=== PATIENT | female | born 1995 | race Caucasian/White ===

== ENCOUNTER 2019-05-05 08:39 | Inpatient (IN) ==
--- OUTSIDE RECORDS SUMMARY | 2019-05-05 08:46 | External Medical Summary | Continuity of Care Document ---
:1995 Author Name Rich Minaya Address Unavailable Unavailable , Care Team Providers Name Role Phone Crayn MOULTON Unavailable [email or web address] PCP, [email or web address] Unavailable Unavailable Problems Active medical history not documented Allergies and Adverse Reactions Allergy history not documented Medications Medications not documented Procedures Procedures not documented Immunizations Immunizations not documented Plan of Treatment Planned Observations Planned Goals not documented Results No Known Results Results not documented
[2019-05-05] MEDS ORDERED: PENICILLIN G POTASSIUM 6 MU in DEXTROSE 5% 250 ML IV STA (09:25)
[2019-05-05] MEDS ORDERED: OXYTOCIN 30 UNITS/500 ML BAG IV PRN ×2 (09:25→20:39)
--- NOTE | 2019-05-05 09:33 | History & Physical Report ---
Date of Service May 05, 2019 Assessment & Plan (1) Uterine contractions at greater than 20 weeks of gestation: 24 yo at 39.6 wks with ctxs, feeling wet, + Amnisure test VSS Afebrile FHR reassuring GBS + Plan to admit, breakfast, ambulate and start Oxytocin if no cervical change in 2 hours Epidural for pain as desires She agrees All questions were answered (2) SROM (spontaneous rupture of membranes): History of Present Illness Chief Complaint: contractions and leaking Primary Care Provider: Desire Rosas MD Patient is a 24 yo at 39.6 wks who started to feel ctxs since last night they got closer and more painful since 5 am She has been feeling wet, no gush or trickling ut her underwear gets wet No VB +FM Her has been uncomplicated GBS+ Denies medical problems Denies PCN allergy Home Medications Home Medications Medication Instructions Recorded Confirmed Type vit-iron fum-folic ac 1 tab PO DAILY 05/05/19 05/05/19 History [ Vitamin] Patient History Social History Preferred Language: Frisian Communication Ability: Effective Pals Specialist Required: No Beliefs That Will Affect Care: None marital status: Current Living Situation: Spouse Other Information That Helps Us Care for You: No Feels Safe at Home: Yes Smoking Status: Never smoker Hx Alcohol Use: No 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
[2019-05-05] MEDS: LACTATED RINGER'S 1,000 ML IV PRN ×2 (09:38→19:08)
[2019-05-05 09:49] LABS: Hematocrit (blood only) 37.9 % (37-47); Hemoglobin 13.4 g/dL (12.0-16.0); Mean Corpuscular Hemoglobin 30.1 pg (25-34); Mean Corpuscular Volume 85.2 fL (80-100); Mean Platelet Volume 10.4 fL (7.4-10.4); Platelet Count 276 K/uL (130-400); RDW Coefficient of Variation 13.3 % (11.5-14.5); Red Blood Count 4.45 M/uL (4.2-5.4); White Blood Count 13.33 K/uL (4.8-10.8)
[2019-05-05 10:03] LABS: Mean Corpuscular Hgb Conc 35.4 g/dL (32-36)
[2019-05-05] MEDS: PENICILLIN G POTASSIUM 3 MU in DEXTROSE 5% 100 ML IV PRN ×3 (13:33→21:28)
[2019-05-05] MEDS ORDERED: DINOPROSTONE 10 MG INSERT PV ONE (14:46)
--- NOTE | 2019-05-05 14:51 | Obstetrical Progress Note ---
Date of Service May 05, 2019 Subjective Patient is reevaluated She feels more painful Ctxs q 4-7 min but more painful, 8-9/10 She is able walk She has bhargav very wet while walking, but has not had underwear nor pad, she has not leaked on the floor either. She received 2 doses of PCN VSS Afebrile FHR categ I [place] unfortunately has not been monitoring ctxs very well, seems mild increase from baseline every 5-7 min VE; 1-2 cm/ 80%/ central, -2, head Discussed options like augmentation with Pitocin vs PO Cytotec vs PV Cervidil Per nursing team hard to run pitocin due to not able monitor ctxs, not a good candidate for IUPC either After long discussion she decided to be able walk and have Cervidil Continue to monitor closely Results & Data Vital Signs (Past 12 Hours) Vital Signs Temp Pulse Resp BP 05/05/19 13:37 37.0 C 64 20 130/73 05/05/19 13:35 74 122/89 05/05/19 12:53 83 130/70 05/05/19 12:49 18 05/05/19 12:09 37.0 C 96 H 20 158/83 H 05/05/19 12:08 97 H 161/121 H 05/05/19 10:13 79 145/78 H 05/05/19 10:12 37.0 C 93 H 20 123/98 05/05/19 08:46 36.8 C 83 20 133/68
[2019-05-05] MEDS: BUTORPHANOL TARTRATE 1 MG/ML VIAL IV PRN ×2 (15:59→17:58)
[2019-05-05] MEDS ORDERED: ePHEDrine sulfate 50 MG/ML AMP ONE (19:15)
[2019-05-05] MEDS ORDERED: BUPIVACAINE 0.25% 30 ML VIAL ONE ×2 (19:15→22:04)
[2019-05-05] MEDS ORDERED: fentaNYL citrate 100 MCG/2 ML VIAL ONE (19:15)
[2019-05-05] MEDS ORDERED: fentaNYL 2MCG/ML ROPIV 1.25MG/ML 100 ML BAG EPI ONE (19:16)
[2019-05-05] MEDS ORDERED: NALOXONE HCL 1 MG in SODIUM CHLORIDE 0.9% 1000ML 1,000 ML IV PRN (19:23)
[2019-05-05] MEDS ORDERED: ePHEDrine sulfate 50 MG/ML AMP IV PRN (19:23)
[2019-05-05] MEDS ORDERED: fentaNYL 2MCG/ML ROPIV 1.25MG/ML 100 ML BAG EPI PRN (19:23)
[2019-05-05] MEDS ORDERED: ONDANSETRON INJ 2 MG/ML 2 ML VIAL IV PRN (19:23)
[2019-05-05] MEDS ORDERED: NALBUPHINE HCL INJ 10 MG/ML AMP IV PRN (19:23)
[2019-05-05] MEDS ORDERED: NALOXONE HCL 0.4 MG/1 ML VIAL/CARP IV PRN (19:23)
[2019-05-05] MEDS ORDERED: DiphenhydrAMINE HCL 50 MG/ML VIAL IV PRN (19:23)
--- NOTE | 2019-05-05 19:28 | Anesthesiology Consultation ---
Date of Service May 05, 2019 Assessment & Plan Chart Review Chart Review: Patient NOT seen in Pre Admission Testing and Acceptable Risk for Labor Epidural Consults Requested none ASA ASA2 Proposed Anesthesia Anesthesia Type: Labor Epidural and CSE Risk / Benefits Reviewed With: PT / POA / Parent / Guardian, Accepts Plan and Informed Consent Obtained History Height/Weight Height: 6 ft 3 in Weight: 137.438 kg Allergies Allergy/AdvReac Type Severity Reaction Status Date / Time No Known Allergies Allergy Unverified 05/05/19 09:55 Medications Home Medications Medication Instructions Recorded Confirmed Last Taken vit-iron fum-folic ac 1 tab PO DAILY 05/05/19 05/05/19 05/04/19 07:15 [ Vitamin] Active Medications Generic Name Dose Route Start Last Admin Trade Name Freq PRN Reason Stop Dose Admin Butorphanol Tartrate 1 mg 05/05/19 14:46 05/05/19 17:58 Stadol IV 06/04/19 14:45 1 mg Q2HWA PRN Administration Pain Penicillin G Potassium 3 mu/ 106 mls @ 100 mls/hr 05/05/19 09:25 05/05/19 17:31 Dextrose IV 05/15/19 09:24 100 mls/hr Q4H PRN Administration Give until delivery Lactated Ringer's 1,000 mls @ 150 mls/hr 05/05/19 09:25 05/05/19 19:18 Lr IV 05/07/19 09:24 999 mls/hr .[id number] PRN Infusion L&D Protocol Protocol NPO Date Last Intake of Fluids: 05/05/19 Time Last Intake of Fluids: 19:00 Date Last Intake of Solids: 05/05/19 Time Last Intake of Solids: 09:00 Exercise / Class Metabolic Activity II 4-5 Yardwork/Stairs/Walk up hill Past Anesthesia History No Hx of Anesthesia Complications and No Family Hx of Anesthesia Complications History of PONV No Hx of PONV and No Hx of Motion Sickness Social History Smoking Status: Never smoker Hx Alcohol Use: No Hx Substance Use: No Review of Systems no chest pain or sob Physical Exam Vital Signs Last Vital Signs Temp 36.8 C 05/05/19 19:04 Pulse 77 05/05/19 19:25 Resp 18 05/05/19 19:04 BP 146/86 H 05/05/19 19:04 Pulse Ox 97 05/05/19 19:25 ENMT Mouth: no TMJ abnormality Thyromental Distance: > or= 3.5 Finger Breadths Mallampati Class: II Neck normal visual inspection Respiratory normal respiratory effort Auscultation: lungs clear to auscultation bilaterally Cardiovascular Rate/Rhythm: regular rate and regular rhythm Musculoskeletal Spine: normal cervical ROM Neurologic moves all extremities Psychiatric Orientation: alert and oriented x 3 Testing Laboratory Results 05/05/19 09:34 Blood Type O Positive 05/05/19 09:34 Antibody Screen NEGATIVE 05/05/19 09:34
--- NOTE | 2019-05-05 20:38 | Obstetrical Progress Note ---
Date of Service May 05, 2019 Subjective Patient is reevaluated She feels much better after epidural Stadol IVX2 did not help for her pain FHR categ I Nursing team unable to monitor her ctxs by toco nor palpate VE: 2/ 90%/ -2, Central, bulging tight bag, cervidil is removed and SROM'ed, clear fluid IUPC is placed Plan to monitor closely [place] start pitocin Results & Data Vital Signs (Past 12 Hours) Vital Signs Temp Pulse Resp BP Pulse Ox 05/05/19 20:35 81 98 05/05/19 20:30 62 98 05/05/19 20:25 85 98 05/05/19 20:24 93 H 120/62 05/05/19 20:20 98 H 98 05/05/19 20:19 63 16 120/57 L 05/05/19 20:15 70 96 05/05/19 20:14 72 18 115/60 05/05/19 20:10 85 98 05/05/19 20:09 81 18 139/67 05/05/19 20:05 72 98 05/05/19 20:00 79 98 05/05/19 19:55 92 H 97 05/05/19 19:53 82 141/68 H 05/05/19 19:50 82 18 135/61 98 05/05/19 19:47 99 H 156/68 H 05/05/19 19:46 18 05/05/19 19:45 86 99 05/05/19 19:44 75 128/68 05/05/19 19:41 73 18 127/72 05/05/19 19:40 69 97 05/05/19 19:39 92 H 154/111 H 05/05/19 19:35 76 156/89 H 98 05/05/19 19:30 88 100 05/05/19 19:25 77 97 05/05/19 19:20 84 98 05/05/19 19:04 36.8 C 68 18 146/86 H 05/05/19 17:02 36.8 C 81 20 115/58 L 05/05/19 15:26 36.8 C 68 20 133/75 05/05/19 13:37 37.0 C 64 20 130/73 05/05/19 13:35 74 122/89 05/05/19 12:53 83 130/70 05/05/19 12:49 18 05/05/19 12:09 37.0 C 96 H 20 158/83 H 05/05/19 12:08 97 H 161/121 H 05/05/19 10:13 79 145/78 H 05/05/19 10:12 37.0 C 93 H 20 123/98 05/05/19 08:46 36.8 C 83 20 133/68
[2019-05-05] MEDS ORDERED: Nursing to Pharmacy Communication ONE (21:26)
--- NOTE | 2019-05-05 22:11 | Obstetrical Progress Note ---
Date of Service May 05, 2019 Subjective Patient started to feel pain again, tearful Epidural button and increased setting are not helping Moving in bed, unable to trace the baby VE; 3/ 90%/ -2, FSE is placed, FHR 150's Continue to monitor Anesthesiology is notified Results & Data Vital Signs (Past 12 Hours) Vital Signs Temp Pulse Resp BP Pulse Ox 05/05/19 22:06 107 H 92 05/05/19 22:05 114 H 97 05/05/19 22:00 99 H 98 05/05/19 21:55 89 98 05/05/19 21:54 88 132/71 05/05/19 21:50 84 97 05/05/19 21:45 84 97 05/05/19 21:40 92 H 97 05/05/19 21:39 87 139/87 05/05/19 21:35 37.1 C 82 20 96 05/05/19 21:30 95 H 97 05/05/19 21:25 76 95 05/05/19 21:20 79 96 05/05/19 21:16 70 94 05/05/19 21:15 76 96 05/05/19 21:10 80 144/93 H 97 05/05/19 21:05 82 96 05/05/19 21:00 81 96 05/05/19 20:55 79 97 05/05/19 20:54 74 129/63 05/05/19 20:50 85 98 05/05/19 20:45 80 96 05/05/19 20:40 81 16 129/66 97 05/05/19 20:37 37.1 C 18 05/05/19 20:35 81 98 05/05/19 20:30 62 98 05/05/19 20:25 85 98 05/05/19 20:24 93 H 120/62 05/05/19 20:20 98 H 98 05/05/19 20:19 63 16 120/57 L 05/05/19 20:15 70 96 05/05/19 20:14 72 18 115/60 05/05/19 20:10 85 98 05/05/19 20:09 81 18 139/67 05/05/19 20:05 72 98 05/05/19 20:00 79 98 05/05/19 19:55 92 H 97 05/05/19 19:53 82 141/68 H 05/05/19 19:50 82 18 135/61 98 05/05/19 19:47 99 H 156/68 H 05/05/19 19:46 18 05/05/19 19:45 86 99 05/05/19 19:44 75 128/68 05/05/19 19:41 73 18 127/72 05/05/19 19:40 69 97 05/05/19 19:39 92 H 154/111 H 05/05/19 19:35 76 156/89 H 98 05/05/19 19:30 88 100 05/05/19 19:25 77 97 05/05/19 19:20 84 98 05/05/19 19:04 36.8 C 68 18 146/86 H 05/05/19 17:02 36.8 C 81 20 115/58 L 05/05/19 15:26 36.8 C 68 20 133/75 05/05/19 13:37 37.0 C 64 20 130/73 05/05/19 13:35 74 122/89 05/05/19 12:53 83 130/70 05/05/19 12:49 18 05/05/19 12:09 37.0 C 96 H 20 158/83 H 05/05/19 12:08 97 H 161/121 H 05/05/19 10:13 79 145/78 H 05/05/19 10:12 37.0 C 93 H 20 123/98
[2019-05-05] MEDS ORDERED: BUPIVACAINE 0.25% 30 ML VIAL INFIL ONE (22:17)
[2019-05-06] MEDS: LACTATED RINGER'S 1,000 ML IV PRN ×2 (00:18→05:01)
[2019-05-06] MEDS: fentaNYL 2MCG/ML ROPIV 1.25MG/ML 100 ML BAG EPI PRN ×3 (00:27→08:32)
[2019-05-06] MEDS: PENICILLIN G POTASSIUM 3 MU in DEXTROSE 5% 100 ML IV PRN ×2 (01:21→05:33)
--- NOTE | 2019-05-06 02:29 | Obstetrical Progress Note ---
Date of Service May 06, 2019 Subjective She has been comfortbale IUPC and fse have been monitoring ctxs and FHR FHR has had multiple variable decels, short lasting with quick recovery, most likely from cord compression Cervix 5 cm Plan to start Amnioinfusion and monitor closely Results & Data Vital Signs (Past 12 Hours) Vital Signs Temp Pulse Resp BP Pulse Ox 05/06/19 02:25 100 H 98 05/06/19 02:23 95 H 116/56 L 05/06/19 02:20 92 H 99 05/06/19 02:15 98 H 98 05/06/19 02:10 102 H 98 05/06/19 02:06 106 H 128/66 05/06/19 02:05 101 H 99 05/06/19 02:00 138 H 99 05/06/19 01:55 89 97 05/06/19 01:50 92 H 96 05/06/19 01:45 83 97 05/06/19 01:44 99 H 135/77 05/06/19 01:40 74 97 05/06/19 01:35 83 96 05/06/19 01:30 76 96 05/06/19 01:27 84 121/57 L 05/06/19 01:25 74 96 05/06/19 01:23 37.2 C 16 05/06/19 01:20 85 127/60 96 05/06/19 01:15 106 H 96 05/06/19 01:13 102 H 94 05/06/19 01:10 84 95 05/06/19 01:05 76 95 05/06/19 01:02 74 94 05/06/19 01:00 82 95 05/06/19 00:57 98 H 113/62 05/06/19 00:55 77 95 05/06/19 00:50 86 96 05/06/19 00:45 76 96 05/06/19 00:42 86 119/62 05/06/19 00:40 77 96 05/06/19 00:35 88 96 05/06/19 00:30 88 97 05/06/19 00:27 95 H 124/64 05/06/19 00:25 96 H 98 05/06/19 00:20 108 H 98 05/06/19 00:17 37.2 C 18 05/06/19 00:15 152 H 99 05/06/19 00:12 102 H 119/59 L 05/06/19 00:10 109 H 97 05/06/19 00:05 95 H 97 05/06/19 00:00 90 96 05/05/19 23:57 86 121/65 05/05/19 23:55 93 H 96 05/05/19 23:50 90 96 05/05/19 23:45 96 H 96 05/05/19 23:42 84 116/56 L 05/05/19 23:40 93 H 96 05/05/19 23:35 80 96 05/05/19 23:30 94 H 96 05/05/19 23:27 93 H 117/56 L 05/05/19 23:25 97 H 97 05/05/19 23:20 105 H 96 05/05/19 23:15 82 95 05/05/19 23:13 94 H 124/74 05/05/19 23:10 90 95 05/05/19 23:05 85 95 05/05/19 23:01 92 H 94 05/05/19 23:00 93 H 95 05/05/19 22:57 98 H 16 119/63 05/05/19 22:55 96 H 97 05/05/19 22:52 86 111/59 L 05/05/19 22:50 87 95 05/05/19 22:48 93 H 123/63 05/05/19 22:45 89 95 05/05/19 22:44 88 125/63 05/05/19 22:40 87 96 05/05/19 22:37 88 16 119/58 L 05/05/19 22:35 85 96 05/05/19 22:32 85 121/56 L 05/05/19 22:30 94 H 96 05/05/19 22:28 84 121/55 L 05/05/19 22:25 94 H 96 05/05/19 22:23 86 141/58 H 05/05/19 22:20 83 96 05/05/19 22:18 101 H 134/69 05/05/19 22:15 81 97 05/05/19 22:12 85 133/63 05/05/19 22:10 90 134/63 97 05/05/19 22:06 107 H 92 05/05/19 22:05 114 H 97 05/05/19 22:00 99 H 98 05/05/19 21:55 89 98 05/05/19 21:54 88 132/71 05/05/19 21:50 84 97 05/05/19 21:45 84 97 05/05/19 21:40 92 H 97 05/05/19 21:39 87 139/87 05/05/19 21:35 37.1 C 82 20 96 05/05/19 21:30 95 H 97 05/05/19 21:25 76 95 05/05/19 21:20 79 96 05/05/19 21:16 70 94 05/05/19 21:15 76 96 05/05/19 21:10 80 144/93 H 97 05/05/19 21:05 82 96 05/05/19 21:00 81 96 05/05/19 20:55 79 97 05/05/19 20:54 74 129/63 05/05/19 20:50 85 98 05/05/19 20:45 80 96 05/05/19 20:40 81 16 129/66 97 05/05/19 20:37 37.1 C 18 05/05/19 20:35 81 98 05/05/19 20:30 62 98 05/05/19 20:25 85 98 05/05/19 20:24 93 H 120/62 05/05/19 20:20 98 H 98 05/05/19 20:19 63 16 120/57 L 05/05/19 20:15 70 96 05/05/19 20:14 72 18 115/60 05/05/19 20:10 85 98 05/05/19 20:09 81 18 139/67 05/05/19 20:05 72 98 05/05/19 20:00 79 98 05/05/19 19:55 92 H 97 05/05/19 19:53 82 141/68 H 05/05/19 19:50 82 18 135/61 98 05/05/19 19:47 99 H 156/68 H 05/05/19 19:46 18 05/05/19 19:45 86 99 05/05/19 19:44 75 128/68 05/05/19 19:41 73 18 127/72 05/05/19 19:40 69 97 05/05/19 19:39 92 H 154/111 H 05/05/19 19:35 76 156/89 H 98 05/05/19 19:30 88 100 05/05/19 19:25 77 97 05/05/19 19:20 84 98 05/05/19 19:04 36.8 C 68 18 146/86 H 05/05/19 17:02 36.8 C 81 20 115/58 L 05/05/19 15:26 36.8 C 68 20 133/75
[2019-05-06] MEDS ORDERED: fentaNYL citrate 100 MCG/2 ML VIAL ONE ×2 (02:47→08:12)
--- NOTE | 2019-05-06 04:30 | Obstetrical Progress Note ---
Date of Service May 06, 2019 Subjective Patient is reevaluated Comfortable no complaints Pitocin has been off HR had been tachycardic with decreased variability VE: 6-7 cm/ 80%/ 0 station, scalp stimulation increased variability, IUPC was removed VSS Afebrile Plan to monitor closely, IVF bolus and restart pitocin if FHR will stay categ I Results & Data Vital Signs (Past 12 Hours) Vital Signs Temp Pulse Resp BP Pulse Ox 05/06/19 04:25 89 100 05/06/19 04:22 82 110/57 L 05/06/19 04:20 98 H 99 05/06/19 04:15 69 99 05/06/19 04:10 74 99 05/06/19 04:07 78 106/59 L 05/06/19 04:05 74 99 05/06/19 04:02 37.3 C 18 05/06/19 04:00 74 99 05/06/19 03:55 73 100 05/06/19 03:52 68 99/51 L 05/06/19 03:50 68 99 05/06/19 03:45 66 100 05/06/19 03:40 68 100 05/06/19 03:37 64 110/53 L 05/06/19 03:35 65 100 05/06/19 03:30 72 100 05/06/19 03:25 66 100 05/06/19 03:24 68 113/56 L 05/06/19 03:20 71 100 05/06/19 03:15 71 100 05/06/19 03:10 77 100 05/06/19 03:08 65 114/59 L 05/06/19 03:05 78 122/57 L 100 05/06/19 03:02 80 121/59 L 05/06/19 03:00 81 100 05/06/19 02:59 94 H 130/62 05/06/19 02:57 81 16 131/60 05/06/19 02:55 124 H 100 05/06/19 02:53 89 16 117/57 L 05/06/19 02:50 104 H 100 05/06/19 02:45 81 100 05/06/19 02:40 86 100 05/06/19 02:38 37.1 C 85 16 111/57 L 05/06/19 02:35 92 H 100 05/06/19 02:30 100 H 98 05/06/19 02:25 100 H 98 05/06/19 02:23 95 H 116/56 L 05/06/19 02:20 92 H 99 05/06/19 02:15 98 H 98 05/06/19 02:10 102 H 98 05/06/19 02:06 106 H 128/66 05/06/19 02:05 101 H 99 05/06/19 02:00 138 H 99 05/06/19 01:55 89 97 05/06/19 01:50 92 H 96 05/06/19 01:45 83 97 05/06/19 01:44 99 H 135/77 05/06/19 01:40 74 97 05/06/19 01:35 83 96 05/06/19 01:30 76 96 05/06/19 01:27 84 121/57 L 05/06/19 01:25 74 96 05/06/19 01:23 37.2 C 16 05/06/19 01:20 85 127/60 96 05/06/19 01:15 106 H 96 05/06/19 01:13 102 H 94 05/06/19 01:10 84 95 05/06/19 01:05 76 95 05/06/19 01:02 74 94 05/06/19 01:00 82 95 05/06/19 00:57 98 H 113/62 05/06/19 00:55 77 95 05/06/19 00:50 86 96 05/06/19 00:45 76 96 05/06/19 00:42 86 119/62 05/06/19 00:40 77 96 05/06/19 00:35 88 96 05/06/19 00:30 88 97 05/06/19 00:27 95 H 124/64 05/06/19 00:25 96 H 98 05/06/19 00:20 108 H 98 05/06/19 00:17 37.2 C 18 05/06/19 00:15 152 H 99 05/06/19 00:12 102 H 119/59 L 05/06/19 00:10 109 H 97 05/06/19 00:05 95 H 97 05/06/19 00:00 90 96 05/05/19 23:57 86 121/65 05/05/19 23:55 93 H 96 05/05/19 23:50 90 96 05/05/19 23:45 96 H 96 05/05/19 23:42 84 116/56 L 05/05/19 23:40 93 H 96 05/05/19 23:35 80 96 05/05/19 23:30 94 H 96 05/05/19 23:27 93 H 117/56 L 05/05/19 23:25 97 H 97 05/05/19 23:20 105 H 96 05/05/19 23:15 82 95 05/05/19 23:13 94 H 124/74 05/05/19 23:10 90 95 05/05/19 23:05 85 95 05/05/19 23:01 92 H 94 05/05/19 23:00 93 H 95 05/05/19 22:57 98 H 16 119/63 05/05/19 22:55 96 H 97 05/05/19 22:52 86 111/59 L 05/05/19 22:50 87 95 05/05/19 22:48 93 H 123/63 05/05/19 22:45 89 95 05/05/19 22:44 88 125/63 05/05/19 22:40 87 96 05/05/19 22:37 88 16 119/58 L 05/05/19 22:35 85 96 05/05/19 22:32 85 121/56 L 05/05/19 22:30 94 H 96 05/05/19 22:28 84 121/55 L 05/05/19 22:25 94 H 96 05/05/19 22:23 86 141/58 H 05/05/19 22:20 83 96 05/05/19 22:18 101 H 134/69 05/05/19 22:15 81 97 05/05/19 22:12 85 133/63 05/05/19 22:10 90 134/63 97 05/05/19 22:06 107 H 92 05/05/19 22:05 114 H 97 05/05/19 22:00 99 H 98 05/05/19 21:55 89 98 05/05/19 21:54 88 132/71 05/05/19 21:50 84 97 05/05/19 21:45 84 97 05/05/19 21:40 92 H 97 05/05/19 21:39 87 139/87 05/05/19 21:35 37.1 C 82 20 96 05/05/19 21:30 95 H 97 05/05/19 21:25 76 95 05/05/19 21:20 79 96 05/05/19 21:16 70 94 05/05/19 21:15 76 96 05/05/19 21:10 80 144/93 H 97 05/05/19 21:05 82 96 05/05/19 21:00 81 96 05/05/19 20:55 79 97 05/05/19 20:54 74 129/63 05/05/19 20:50 85 98 05/05/19 20:45 80 96 05/05/19 20:40 81 16 129/66 97 05/05/19 20:37 37.1 C 18 05/05/19 20:35 81 98 05/05/19 20:30 62 98 05/05/19 20:25 85 98 05/05/19 20:24 93 H 120/62 05/05/19 20:20 98 H 98 05/05/19 20:19 63 16 120/57 L 05/05/19 20:15 70 96 05/05/19 20:14 72 18 115/60 05/05/19 20:10 85 98 05/05/19 20:09 81 18 139/67 05/05/19 20:05 72 98 05/05/19 20:00 79 98 05/05/19 19:55 92 H 97 05/05/19 19:53 82 141/68 H 05/05/19 19:50 82 18 135/61 98 05/05/19 19:47 99 H 156/68 H 05/05/19 19:46 18 05/05/19 19:45 86 99 05/05/19 19:44 75 128/68 05/05/19 19:41 73 18 127/72 05/05/19 19:40 69 97 05/05/19 19:39 92 H 154/111 H 05/05/19 19:35 76 156/89 H 98 05/05/19 19:30 88 100 05/05/19 19:25 77 97 05/05/19 19:20 84 98 05/05/19 19:04 36.8 C 68 18 146/86 H 05/05/19 17:02 36.8 C 81 20 115/58 L
[2019-05-06] MEDS ORDERED: cefOXitin 2,000 MG/60 ML BAG IV STA (06:25)
--- NOTE | 2019-05-06 06:55 | Obstetrical Progress Note ---
Date of Service May 06, 2019 Subjective Patient is reevaluated Started to feel ctxs FHR had been mildly tachycardic 155-160's baseline with minimal variability and short lasting variable decels Pitocin had not been started due to that VE; 6-7/ 70%/ 0, coned head, OP, confirmed with bed side US scalp stimulation caused acceleration and moderate variability Maternal temp 37.3 and repeat one 37.2 Started on Cefoxitin for prolonged SROM CBC pending FHR had been now normal baseline and variability Will start pitocin to augment ctxs and continue to monitor closely Will sign out to Dr. Abad Results & Data Vital Signs (Past 12 Hours) Vital Signs Temp Pulse Resp BP Pulse Ox 05/06/19 06:46 93 H 93 05/06/19 06:45 98 H 95 05/06/19 06:40 96 H 98 05/06/19 06:36 88 132/71 05/06/19 06:35 86 95 05/06/19 06:30 90 97 05/06/19 06:25 81 97 05/06/19 06:24 92 H 131/74 05/06/19 06:20 37.2 C 117 H 98 05/06/19 06:15 85 99 05/06/19 06:10 82 99 05/06/19 06:07 90 115/57 L 05/06/19 06:05 91 H 99 05/06/19 06:00 87 99 05/06/19 05:55 76 99 05/06/19 05:52 95 H 129/55 L 05/06/19 05:50 76 99 05/06/19 05:45 63 100 05/06/19 05:40 65 100 05/06/19 05:37 37.3 C 81 16 114/59 L 05/06/19 05:35 71 99 05/06/19 05:30 91 H 100 05/06/19 05:25 69 100 05/06/19 05:22 58 L 111/56 L 05/06/19 05:20 67 99 05/06/19 05:15 65 100 05/06/19 05:10 66 100 05/06/19 05:07 61 106/52 L 05/06/19 05:05 63 100 05/06/19 05:00 69 100 05/06/19 04:55 64 100 05/06/19 04:52 62 106/56 L 05/06/19 04:50 63 99 05/06/19 04:45 65 99 05/06/19 04:40 68 99 05/06/19 04:37 72 106/58 L 05/06/19 04:35 67 100 05/06/19 04:30 83 99 05/06/19 04:25 89 100 05/06/19 04:22 82 110/57 L 05/06/19 04:20 98 H 99 05/06/19 04:15 69 99 05/06/19 04:10 74 99 05/06/19 04:07 78 106/59 L 05/06/19 04:05 74 99 05/06/19 04:02 37.3 C 18 05/06/19 04:00 74 99 05/06/19 03:55 73 100 05/06/19 03:52 68 99/51 L 05/06/19 03:50 68 99 05/06/19 03:45 66 100 05/06/19 03:40 68 100 05/06/19 03:37 64 110/53 L 05/06/19 03:35 65 100 05/06/19 03:30 72 100 05/06/19 03:25 66 100 05/06/19 03:24 68 113/56 L 05/06/19 03:20 71 100 05/06/19 03:15 71 100 05/06/19 03:10 77 100 05/06/19 03:08 65 114/59 L 05/06/19 03:05 78 122/57 L 100 05/06/19 03:02 80 121/59 L 05/06/19 03:00 81 100 05/06/19 02:59 94 H 130/62 05/06/19 02:57 81 16 131/60 05/06/19 02:55 124 H 100 05/06/19 02:53 89 16 117/57 L 05/06/19 02:50 104 H 100 05/06/19 02:45 81 100 05/06/19 02:40 86 100 05/06/19 02:38 37.1 C 85 16 111/57 L 05/06/19 02:35 92 H 100 05/06/19 02:30 100 H 98 05/06/19 02:25 100 H 98 05/06/19 02:23 95 H 116/56 L 05/06/19 02:20 92 H 99 05/06/19 02:15 98 H 98 05/06/19 02:10 102 H 98 05/06/19 02:06 106 H 128/66 05/06/19 02:05 101 H 99 05/06/19 02:00 138 H 99 05/06/19 01:55 89 97 05/06/19 01:50 92 H 96 05/06/19 01:45 83 97 05/06/19 01:44 99 H 135/77 05/06/19 01:40 74 97 05/06/19 01:35 83 96 05/06/19 01:30 76 96 05/06/19 01:27 84 121/57 L 05/06/19 01:25 74 96 05/06/19 01:23 37.2 C 16 05/06/19 01:20 85 127/60 96 05/06/19 01:15 106 H 96 05/06/19 01:13 102 H 94 05/06/19 01:10 84 95 05/06/19 01:05 76 95 05/06/19 01:02 74 94 05/06/19 01:00 82 95 05/06/19 00:57 98 H 113/62 05/06/19 00:55 77 95 05/06/19 00:50 86 96 05/06/19 00:45 76 96 05/06/19 00:42 86 119/62 05/06/19 00:40 77 96 05/06/19 00:35 88 96 05/06/19 00:30 88 97 05/06/19 00:27 95 H 124/64 05/06/19 00:25 96 H 98 05/06/19 00:20 108 H 98 05/06/19 00:17 37.2 C 18 05/06/19 00:15 152 H 99 05/06/19 00:12 102 H 119/59 L 05/06/19 00:10 109 H 97 05/06/19 00:05 95 H 97 05/06/19 00:00 90 96 05/05/19 23:57 86 121/65 05/05/19 23:55 93 H 96 05/05/19 23:50 90 96 05/05/19 23:45 96 H 96 05/05/19 23:42 84 116/56 L 05/05/19 23:40 93 H 96 05/05/19 23:35 80 96 05/05/19 23:30 94 H 96 05/05/19 23:27 93 H 117/56 L 05/05/19 23:25 97 H 97 05/05/19 23:20 105 H 96 05/05/19 23:15 82 95 05/05/19 23:13 94 H 124/74 05/05/19 23:10 90 95 05/05/19 23:05 85 95 05/05/19 23:01 92 H 94 05/05/19 23:00 93 H 95 05/05/19 22:57 98 H 16 119/63 05/05/19 22:55 96 H 97 05/05/19 22:52 86 111/59 L 05/05/19 22:50 87 95 05/05/19 22:48 93 H 123/63 05/05/19 22:45 89 95 05/05/19 22:44 88 125/63 05/05/19 22:40 87 96 05/05/19 22:37 88 16 119/58 L 05/05/19 22:35 85 96 05/05/19 22:32 85 121/56 L 05/05/19 22:30 94 H 96 05/05/19 22:28 84 121/55 L 05/05/19 22:25 94 H 96 05/05/19 22:23 86 141/58 H 05/05/19 22:20 83 96 05/05/19 22:18 101 H 134/69 05/05/19 22:15 81 97 05/05/19 22:12 85 133/63 05/05/19 22:10 90 134/63 97 05/05/19 22:06 107 H 92 05/05/19 22:05 114 H 97 05/05/19 22:00 99 H 98 05/05/19 21:55 89 98 05/05/19 21:54 88 132/71 05/05/19 21:50 84 97 05/05/19 21:45 84 97 05/05/19 21:40 92 H 97 05/05/19 21:39 87 139/87 05/05/19 21:35 37.1 C 82 20 96 10/29/19 21:30 95 H 97 05/05/19 21:25 76 95 05/05/19 21:20 79 96 05/05/19 21:16 70 94 05/05/19 21:15 76 96 05/05/19 21:10 80 144/93 H 97 05/05/19 21:05 82 96 05/05/19 21:00 81 96 05/05/19 20:55 79 97 05/05/19 20:54 74 129/63 05/05/19 20:50 85 98 05/05/19 20:45 80 96 05/05/19 20:40 81 16 129/66 97 05/05/19 20:37 37.1 C 18 05/05/19 20:35 81 98 05/05/19 20:30 62 98 05/05/19 20:25 85 98 05/05/19 20:24 93 H 120/62 05/05/19 20:20 98 H 98 05/05/19 20:19 63 16 120/57 L 05/05/19 20:15 70 96 05/05/19 20:14 72 18 115/60 05/05/19 20:10 85 98 05/05/19 20:09 81 18 139/67 05/05/19 20:05 72 98 05/05/19 20:00 79 98 05/05/19 19:55 92 H 97 05/05/19 19:53 82 141/68 H 05/05/19 19:50 82 18 135/61 98 05/05/19 19:47 99 H 156/68 H 05/05/19 19:46 18 05/05/19 19:45 86 99 05/05/19 19:44 75 128/68 05/05/19 19:41 73 18 127/72 05/05/19 19:40 69 97 05/05/19 19:39 92 H 154/111 H 05/05/19 19:35 76 156/89 H 98 05/05/19 19:30 88 100 05/05/19 19:25 77 97 05/05/19 19:20 84 98 05/05/19 19:04 36.8 C 68 18 146/86 H
[2019-05-06 07:04] LABS: Basophils # (auto) 0.02 K/uL (0-0.2); Basophils % (auto) 0.1 %; Eosinophils # (auto) 0.02 K/uL (0-0.5); Eosinophils % (auto) 0.1 %; Hematocrit (blood only) 36.4 % (37-47); Hemoglobin 12.5 g/dL (12.0-16.0); Immature Granulocytes # (auto) 0.07 K/uL (0.00-0.02); Immature Granulocytes % (auto) 0.3 %; Lymphocytes # (auto) 2.65 K/uL (1.2-3.4); Lymphocytes % (auto) 12.9 %; Mean Corpuscular Hemoglobin 29.7 pg (25-34); Mean Corpuscular Hgb Conc 34.3 g/dL (32-36); Mean Corpuscular Volume 86.5 fL (80-100); Mean Platelet Volume 10.3 fL (7.4-10.4); Monocytes # (auto) 1.35 K/uL (0.11-0.59); Monocytes % (auto) 6.6 %; Neutrophils # (auto) 16.42 K/uL (1.4-6.5); Platelet Count 249 K/uL (130-400); RDW Coefficient of Variation 13.4 % (11.5-14.5); RDW Standard Deviation 42.3 fL (36.4-46.3); Red Blood Count 4.21 M/uL (4.2-5.4); White Blood Count 20.53 K/uL (4.8-10.8)
[2019-05-06 07:30] LABS: Albumin Level 2.3 gm/dl (3.4-5.0); Calcium 8.5 mg/dl (8.5-10.1); Creatinine Clr Calc Pharmacy 227.4 ml/min; Est GFR (African American) 146.3; Est GFR (Non-African American) 126.2; Potassium 3.5 mmol/L (3.5-5.1)
[2019-05-06 07:32] LABS: Albumin Globulin Ratio 0.6 (0.9-2); Bilirubin,Total 0.8 mg/dl (0.2-1); Globulin 3.8 gm/dl (2.5-4.0); Total Protein 6.1 gm/dl (6.4-8.2)
[2019-05-06] MEDS ORDERED: BUPIVACAINE 0.25% 30 ML VIAL ONE (08:12)
[2019-05-06] MEDS ORDERED: LIDOCAINE/EPINEPHRINE 2% 1:200,000 20 ML SDV ONE (08:39)
[2019-05-06] MEDS ORDERED: SODIUM CHLORIDE 0.9% INJ 10 ML VIAL ONE (08:40)
[2019-05-06] MEDS ORDERED: OXYTOCIN 30 UNITS/500 ML BAG IV PRN (10:44)
[2019-05-06] MEDS ORDERED: BISACODYL 10 MG SUPP PR PRN (10:44)
[2019-05-06] MEDS ORDERED: HYDROCORTISONE ACETATE 25 MG SUPP PR PRN (10:44)
[2019-05-06] MEDS ORDERED: ACETAMINOPHEN 325 MG TAB PO PRN (10:44)
[2019-05-06] MEDS ORDERED: SUPERCREAM 0.870% 15 GM JAR EXT PRN (10:44)
[2019-05-06] MEDS ORDERED: BENZOCAINE 20% AER SPR 82.5 GM CAN EXT PRN (10:44)
[2019-05-06] MEDS ORDERED: OXYCODONE/ACETAMINOPHEN 5mg/325mg TAB PO PRN (10:44)
[2019-05-06] MEDS ORDERED: DIPHTHERIA/TETANUS/PERTUSSIS 0.5 ML SYR/VIAL IM ONE (10:44)
[2019-05-06] MEDS ORDERED: ACETAMINOPHEN W/CODEINE #3 1 TAB PO PRN (10:44)
--- NOTE | 2019-05-06 10:51 | Anesthesia Procedure Note ---
Date of Service May 06, 2019 Anesthesia Post Epidural Note Vital Signs Vital Signs: Temp Pulse Resp BP Pulse Ox 37.5 C 115 H 20 150/79 H 93 05/06/19 07:12 05/06/19 10:49 05/06/19 09:00 05/06/19 10:49 05/06/19 10:25 Pain Intensity Bilateral Abdomen: Pain Intensity: 9 Notes Mental Status: alert / awake / arousable and participated in evaluation Nausea / Vomiting: adequately controlled Pain: adequately controlled Airway Patency, RR, SpO2: stable & adequate BP & HR: stable & adequate Hydration State: stable & adequate Neuraxial Anesthesia: was administered and sensory block is resolving Anesthetic Complications: no major complications apparent and Pt Satisfied with anesthetic care Epidural: Removed without complications and With tip intact Notes: Epidural site clean, dry and intact. No signs of edema, erythema or bruising at insertion site. Pt instructed to request anesthesia if she has residual lower extremity numbness or if she develops lower extremity pain or weakness, back pain or headache.
--- NOTE | 2019-05-06 11:01 | Delivery Summary ---
DATE OF OPERATION: 05/06/2019 She is a 1, para 1. Blood type is O positive, group B strep positive. She was admitted in active labor. She had a few issues. She was given amnioinfusion due to decelerations, epidural, she had an intrauterine pressure catheter and scalp monitor. Eventually, her epidural was redosed, the IUPC was removed and the head came down quite nicely and she dilated at a rapid rate towards the end. The Pitocin was turned off. She did not need it. She went to full dilatation, pushed out a live female infant via direct occiput anterior position over an intact perineum. There was a nuchal cord. The infant was delivered with a nuchal cord around the body. After delivery of the infant, nuchal cord was reduced. was suctioned through the mouth and the nose. Cord was clamped, cut by the father. Cord blood was taken. With IV Pitocin running, the placenta was removed intact. Placenta appeared somewhat small, was sent for pathological evaluation. Inspection of the perineum revealed a first degree laceration of the vagina, it actually did not extend to the perineum. The extent of the vaginal defect was identified and sutured with a running 2-0 Vicryl out and to beyond the hymenal ring. Following this, vaginal exam including rectovaginal examination revealed no hematoma formation or sponges in the vagina. Estimated blood loss 300 mL. Anesthesia is epidural. Apgars deferred to the nurses. I attest to the content of the Intraoperative Record and any orders documented therein. Any exception s are noted below.
[2019-05-06] MEDS ORDERED: cefOXitin 2,000 MG in DEXTROSE 5% 50 ML IV SCH (12:30)
[2019-05-06] MEDS: IBUPROFEN 600 MG TAB PO PRN (15:29)
[2019-05-06] MEDS: DOCUSATE SODIUM 100 MG CAP PO SCH (20:36)
[2019-05-07] MEDS: IBUPROFEN 600 MG TAB PO PRN (02:30)
[2019-05-07 07:05] LABS: Hematocrit (blood only) 34.5 % (37-47); Hemoglobin 11.6 g/dL (12.0-16.0); Mean Corpuscular Hemoglobin 29.4 pg (25-34); Mean Corpuscular Hgb Conc 33.6 g/dL (32-36); Mean Corpuscular Volume 87.3 fL (80-100); Mean Platelet Volume 10.1 fL (7.4-10.4); Platelet Count 200 K/uL (130-400); RDW Coefficient of Variation 13.6 % (11.5-14.5); RDW Standard Deviation 43.5 fL (36.4-46.3); Red Blood Count 3.95 M/uL (4.2-5.4); White Blood Count 13.94 K/uL (4.8-10.8)
[2019-05-07] MEDS: DOCUSATE SODIUM 100 MG CAP PO SCH ×2 (08:39→20:42)
[2019-05-07] MEDS: PRENATAL VITAMIN 1 TAB PO SCH (08:39)
[2019-05-07] MEDS: FERROUS SULFATE 325 MG TAB PO SCH (08:39)
--- NOTE | 2019-05-07 10:24 | Obstetrical Progress Note ---
Date of Service May 07, 2019 Assessment & Plan (1) normal course: PPD #1 pt doing well anticipate disch tomorrow Results & Data Vital Signs (Past 12 Hours) Vital Signs Temp Pulse Resp BP Pulse Ox 05/07/19 07:50 36.3 C L 79 20 119/76 05/07/19 05:00 36.9 C 84 18 104/51 L 96 05/07/19 00:00 36.9 C 67 18 129/68 96
[2019-05-07] MEDS ORDERED: BISACODYL 5 MG TABEC PO SCH (20:00)
[2019-05-08 06:22] LABS: Hematocrit (blood only) 37.4 % (37-47); Hemoglobin 12.5 g/dL (12.0-16.0)
--- NOTE | 2019-05-08 08:49 | Obstetrical Progress Note ---
Date of Service May 08, 2019 Subjective Patient is seen and examined. She feels well, no complaints. Ambulating without dizziness Voiding without difficulty Tolerating regular diet with out N&V Bleeding is minimal No fever/ chills/ CP/ SOB/ N&V/ Leg pain Breast and bottle feeding without problems Vital Signs Temp Pulse Resp BP Pulse Ox 05/07/19 23:30 36.6 C 89 18 130/77 05/07/19 16:00 37.3 C 67 18 134/83 95 Lab Results 05/05/19 05/05/19 05/06/19 Range/Units 09:34 09:34 06:34 WBC 13.33 H 20.53 H (4.8-10.8) K/uL RBC 4.45 4.21 (4.2-5.4) M/uL Hgb 13.4 12.5 (12.0-16.0) g/dL Hct 37.9 36.4 L (37-47) % MCV 85.2 86.5 (80-100) fL MCH 30.1 29.7 (25-34) pg MCHC 35.4 34.3 (32-36) g/dL RDW Std Deviation 41.0 42.3 (36.4-46.3) fL RDW Coeff of Juan 13.3 13.4 (11.5-14.5) % Plt Count 276 249 (130-400) K/uL MPV 10.4 10.3 (7.4-10.4) fL Immature Gran % (Auto) 0.3 % Neut % (Auto) 80.0 % Lymph % (Auto) 12.9 % Heard % (Auto) 6.6 % Eos % (Auto) 0.1 % Baso % (Auto) 0.1 % Immature Gran # (Auto) 0.07 H (0.00-0.02) K/uL Neut # (Auto) 16.42 H (1.4-6.5) K/uL Lymph # (Auto) 2.65 (1.2-3.4) K/uL Heard # (Auto) 1.35 H (0.11-0.59) K/uL Eos # (Auto) 0.02 (0-0.5) K/uL Baso # (Auto) 0.02 (0-0.2) K/uL Sodium (136-145) mmol/L Potassium (3.5-5.1) mmol/L Chloride (98-107) mmol/L Carbon Dioxide (21-32) mmol/L Anion Gap (3-11) BUN (7-18) mg/dl Creatinine (0.6-1.2) mg/dl Est Cr Clr Drug Dosing ml/min Est GFR ( Amer) Est GFR (Non-Af Amer) BUN/Creatinine Ratio (10-20) Glucose (70-99) mg/dl Calcium (8.5-10.1) mg/dl Total Bilirubin (0.2-1) mg/dl AST (15-37) U/L ALT (12-78) U/L Alkaline Phosphatase (45-117) U/L Total Protein (6.4-8.2) gm/dl Albumin (3.4-5.0) gm/dl Globulin (2.5-4.0) gm/dl Albumin/Globulin Ratio (0.9-2) Blood Type O Positive Antibody Screen NEGATIVE 05/06/19 05/07/19 05/08/19 Range/Units 06:34 06:46 06:08 WBC 13.94 H (4.8-10.8) K/uL RBC 3.95 L (4.2-5.4) M/uL Hgb 11.6 L 12.5 (12.0-16.0) g/dL Hct 34.5 L 37.4 (37-47) % MCV 87.3 (80-100) fL MCH 29.4 (25-34) pg MCHC 33.6 (32-36) g/dL RDW Std Deviation 43.5 (36.4-46.3) fL RDW Coeff of Juan 13.6 (11.5-14.5) % Plt Count 200 (130-400) K/uL MPV 10.1 (7.4-10.4) fL Immature Gran % (Auto) % Neut % (Auto) % Lymph % (Auto) % Heard % (Auto) % Eos % (Auto) % Baso % (Auto) % Immature Gran # (Auto) (0.00-0.02) K/uL Neut # (Auto) (1.4-6.5) K/uL Lymph # (Auto) (1.2-3.4) K/uL Heard # (Auto) (0.11-0.59) K/uL Eos # (Auto) (0-0.5) K/uL Baso # (Auto) (0-0.2) K/uL Sodium 138 (136-145) mmol/L Potassium 3.5 (3.5-5.1) mmol/L Chloride 109 H (98-107) mmol/L Carbon Dioxide 20 L (21-32) mmol/L Anion Gap 9.0 (3-11) BUN 7 (7-18) mg/dl Creatinine 0.62 (0.6-1.2) mg/dl Est Cr Clr Drug Dosing 227.4 ml/min Est GFR ( Amer) 146.3 Est GFR (Non-Af Amer) 126.2 BUN/Creatinine Ratio 11.0 (10-20) Glucose 92 (70-99) mg/dl Calcium 8.5 (8.5-10.1) mg/dl Total Bilirubin 0.8 (0.2-1) mg/dl AST 6 L (15-37) U/L ALT 9 L (12-78) U/L Alkaline Phosphatase 82 (45-117) U/L Total Protein 6.1 L (6.4-8.2) gm/dl Albumin 2.3 L (3.4-5.0) gm/dl Globulin 3.8 (2.5-4.0) gm/dl Albumin/Globulin Ratio 0.6 L (0.9-2) Blood Type Antibody Screen PE: General: Alert, orientedx3, NAD Abd: soft, NT, fundus firm, below Umbilicus Perineum intact, Lochia rubra minimal Ext; NT, no edema AP: 24 yo s/p , ppd# 2 VSS Afebrile doing well Continue routine care All questions were answered Discussed when to call D/C home after labs Results & Data Vital Signs (Past 12 Hours) Vital Signs Temp Pulse Resp BP 05/07/19 23:30 36.6 C 89 18 130/77
[2019-05-08 08:57] LABS: Basophils # (auto) 0.04 K/uL (0-0.2); Basophils % (auto) 0.3 %; Eosinophils # (auto) 0.34 K/uL (0-0.5); Eosinophils % (auto) 2.9 %; Hematocrit (blood only) 36.2 % (37-47); Hemoglobin 12.2 g/dL (12.0-16.0); Immature Granulocytes # (auto) 0.05 K/uL (0.00-0.02); Immature Granulocytes % (auto) 0.4 %; Lymphocytes # (auto) 2.28 K/uL (1.2-3.4); Lymphocytes % (auto) 19.4 %; Mean Corpuscular Hemoglobin 29.6 pg (25-34); Mean Corpuscular Hgb Conc 33.7 g/dL (32-36); Mean Corpuscular Volume 87.9 fL (80-100); Mean Platelet Volume 9.9 fL (7.4-10.4); Monocytes % (auto) 5.1 %; Neutrophils # (auto) 8.44 K/uL (1.4-6.5); Neutrophils % (auto) 71.9 %; Platelet Count 242 K/uL (130-400); RDW Coefficient of Variation 13.6 % (11.5-14.5); RDW Standard Deviation 44.2 fL (36.4-46.3); Red Blood Count 4.12 M/uL (4.2-5.4); White Blood Count 11.75 K/uL (4.8-10.8)
[2019-05-08] MEDS: PRENATAL VITAMIN 1 TAB PO SCH (09:44)
[2019-05-08] MEDS: FERROUS SULFATE 325 MG TAB PO SCH (09:44)
[2019-05-08] MEDS: DOCUSATE SODIUM 100 MG CAP PO SCH (09:44)
[2019-05-08] MEDS: IBUPROFEN 600 MG TAB PO PRN (09:44)
[2019-05-08 11:25] VITALS: BP 134/94
[2019-05-08 13:05] VITALS: PULSE 89; TEMP 97.3; O2SAT 98
== END 2019-05-08 15:25 | disposition home or self-care (01) | DRG 807 ==
LOC: OPB 08:39 → 4S1 08:45 → 4N 05-06 13:25

== ENCOUNTER 2020-11-24 07:34 | Inpatient (IN) ==
[2020-11-24] MEDS ORDERED: OXYTOCIN 30 UNITS/500 ML BAG IV PRN ×2 (08:38→22:37)
[2020-11-24] MEDS ORDERED: DINOPROSTONE 10 MG INSERT PV ONE (08:38)
--- NOTE | 2020-11-24 08:47 | History & Physical Report ---
Date of Service November 24, 2020 Assessment & Plan (1) Obesity affecting in third trimester, antepartum: (2) Post-dates : 25-year-old G2, P1 at 40 weeks and 2 days of gestation presenting for scheduled induction of labor. Vital signs stable afebrile, no complaints. heart rate reassuring GBS negative Cervix unfavorable Plan to admit, labs, IV fluids and cervical ripening with Cervidil. Discussed what to expect during induction and all questions were answered. Admission and Anticipated Discharge Date Admission Date: November 24, 2020 History of Present Illness Primary Care Provider: Ralf Araya DO Patient is a 25-year-old -0-0-1 at 40 weeks and 2 days of gestation who is being admitted for induction of labor for postdates. Patient feels well and no complaints. She denies contractions, leakage of fluid or vaginal bleeding, fever chills, headache, change in her vision nor Covid symptoms. She reports good movements. Her has been uncomplicated except obesity. GBS is negative Allergies Allergy/AdvReac Type Severity Reaction Status Date / Time No Known Allergies Allergy Unverified 08/10/20 13:50 Home Medications Medication Instructions Recorded Confirmed Type Vitamin 1 tab PO DAILY 05/05/19 11/24/20 History Patient History Medical History No known health problems Surgical History History of wisdom tooth extraction Family History Denies family history of Ovarian cancer Prostate cancer Myocardial infarction Breast cancer Colorectal cancer Social History Smoking Status: Never smoker Hx Alcohol Use: No Hx Substance Use: No Preferred Language: R[place] Communication Ability: Effective 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 Review of Systems All systems reviewed & are unremarkable except as noted in HPI & below Physical Exam Constitutional: WD/WN, vitals as above well developed Comfortably laying in the bed, not in acute distress. Gastrointestinal (Abdomen): normal bowel sounds, soft, nontender, no hepatosplenomegaly (Gravid, Martín 7 to 8 pounds) Genitourinary: normal external appearance Speculum/Bimanual Exam: + vaginal cyst (On anterior vaginal wall, about 3 x 3 cm) OB Exam Abdomen: + vertex (Confirmed with bedside ultrasound) Manual OB Exam: + cervical dilation 1 cm, + cervical effacement 30% and + station high OB Exam Monitor Tracing: + external uterine monitor used and + category I Results & Data ([facility]) Vital Signs (Past 12 Hours) Vital Signs Temp Pulse Resp BP 11/24/20 07:57 36.6 C 20 11/24/20 07:52 75 128/75
[2020-11-24] MEDS ORDERED: ACETAMINOPHEN 325 MG TAB PO PRN ×2 (09:08→22:37)
[2020-11-24] MEDS ORDERED: CALCIUM CARBONATE 500 MG CHEWABLE TAB PO PRN (09:08)
[2020-11-24] MEDS ORDERED: ONDANSETRON INJ 2 MG/ML 2 ML VIAL IV PRN (09:08)
[2020-11-24 09:15] LABS: Hematocrit (blood only) 39.8 % (37-47); Hemoglobin 13.7 g/dL (12.0-16.0); Mean Corpuscular Hemoglobin 30.2 pg (25-34); Mean Corpuscular Hgb Conc 34.4 g/dL (32-36); Mean Corpuscular Volume 87.9 fL (80-100); Mean Platelet Volume 11.3 fL (7.4-10.4); Platelet Count 232 K/uL (130-400); RDW Coefficient of Variation 13.2 % (11.5-14.5); RDW Standard Deviation 42.6 fL (36.4-46.3); Red Blood Count 4.53 M/uL (4.2-5.4); White Blood Count 10.93 K/uL (4.8-10.8)
[2020-11-24 09:45] LABS: Alanine Aminotransferase 11 U/L (12-78); Albumin Level 2.6 gm/dl (3.4-5.0); Aspartate Aminotransferase 7 U/L (15-37); BUN Creatinine Ratio 12.6 (10-20); Blood Urea Nitrogen 6 mg/dl (7-18); Carbon Dioxide 21 mmol/L (21-32); Chloride 113 mmol/L (98-107); Creatinine Clr Calc Pharmacy 318.9 ml/min; Est GFR (African American) > 150.0 ml/min; Est GFR (Non-African American) 140.3 ml/min; Glucose 78 mg/dl (70-99); Sodium 140 mmol/L (136-145)
[2020-11-24 09:46] LABS: Albumin Globulin Ratio 0.7 (0.9-2); Alkaline Phosphatase 93 U/L (45-117); Bilirubin,Total 0.4 mg/dl (0.2-1); Total Protein 6.6 gm/dl (6.4-8.2)
--- NOTE | 2020-11-24 15:39 | Obstetrical Progress Note ---
Date of Service November 24, 2020 Assessment & Plan Admission and Anticipated Discharge Date Admission Date: November 24, 2020 Subjective Patient is reevaluated. She feels mild contractions, every 2 to 4 minutes. She denies leakage of fluid or vaginal bleeding. She has been walking and sitting on the ball and they have been helping her. She denies any pain medication. heart rate category 1, reassuring. Continue to monitor and cervical ripening. Results & Data ([facility]) Vital Signs (Past 12 Hours) Vital Signs Temp Pulse Resp BP 11/24/20 15:12 72 140/82 11/24/20 15:11 70 138/78 11/24/20 15:09 36.6 C 62 18 141/78 H 11/24/20 11:57 58 L 133/76 11/24/20 11:56 37.1 C 11/24/20 07:57 36.6 C 11/24/20 07:52 75 128/75
[2020-11-24] MEDS: BUTORPHANOL TARTRATE 1 MG/ML VIAL IV PRN ×2 (15:44→18:05)
[2020-11-24] MEDS: LACTATED RINGER'S 1,000 ML IV PRN ×2 (15:44→19:00)
[2020-11-24] MEDS ORDERED: BUPIVACAINE 0.25% 30 ML VIAL ONE (18:39)
[2020-11-24] MEDS ORDERED: ePHEDrine sulfate 50 MG/ML AMP ONE (18:39)
[2020-11-24] MEDS ORDERED: fentaNYL citrate 100 MCG/2 ML VIAL ONE (18:40)
[2020-11-24] MEDS ORDERED: fentaNYL 2MCG/ML ROPIVACAINE 1.25MG/ML 100 ML BAG EPI ONE (18:41)
[2020-11-24] MEDS ORDERED: fentaNYL 2MCG/ML ROPIVACAINE 1.25MG/ML 100 ML BAG EPI PRN (19:25)
[2020-11-24] MEDS ORDERED: NALOXONE HCL 1 MG in SODIUM CHLORIDE 0.9% 1000ML 1,000 ML IV PRN (19:25)
[2020-11-24] MEDS ORDERED: NALOXONE HCL 0.4 MG/1 ML VIAL/CARP IV PRN (19:25)
[2020-11-24] MEDS ORDERED: diphenhydrAMINE 50 MG/ML VIAL IV PRN (19:25)
[2020-11-24] MEDS ORDERED: ePHEDrine sulfate 50 MG/ML AMP IV PRN (19:25)
--- NOTE | 2020-11-24 19:25 | Anesthesiology Consultation ---
Date of Service November 24, 2020 Assessment & Plan Chart Review Chart Review: Acceptable Risk for Labor Epidural Consults Requested none History Height/Weight Height: 6 ft 3 in Weight: 138.346 kg Allergies Allergy/AdvReac Type Severity Reaction Status Date / Time No Known Allergies Allergy Unverified 08/10/20 13:50 Medications Home Medications Medication Instructions Recorded Confirmed Last Taken Vitamin 1 tab PO DAILY 05/05/19 11/24/20 11/23/20 Active Medications Generic Name Dose Route Start Last Admin Trade Name Freq PRN Reason Stop Dose Admin Butorphanol Tartrate 1 mg 11/24/20 09:08 11/24/20 18:05 Butorphanol Tartrate 1 Mg/Ml Vial IV 12/24/20 09:07 1 mg Q2HWA PRN Administration Pain Lactated Ringer's 1,000 mls @ 150 mls/hr 11/24/20 08:38 11/24/20 18:00 Lr IV 11/26/20 08:37 999 mls/hr .[id number] PRN Infusion L&D Protocol Protocol Past Medical History Medical History No known health problems Exercise / Class Metabolic Activity II 4-5 Yardwork/Stairs/Walk up hill Past Family History Family History Denies family history of Ovarian cancer Prostate cancer Myocardial infarction Breast cancer Colorectal cancer Past Surgical History Surgical History History of wisdom tooth extraction Past Anesthesia History No Hx of Anesthesia Complications and No Family Hx of Anesthesia Complications History of PONV No Hx of PONV and No Hx of Motion Sickness Social History Smoking Status: Never smoker Hx Alcohol Use: No Hx Substance Use: No Physical Exam Vital Signs Last Vital Signs Temp 36.7 C 11/24/20 19:10 Pulse 61 11/24/20 19:23 Resp 20 11/24/20 19:10 BP 161/83 H 11/24/20 19:18 Pulse Ox 97 11/24/20 19:23 Testing Laboratory Results 11/24/20 08:51 11/24/20 08:51 Blood Type O Positive 11/24/20 08:51 Antibody Screen NEGATIVE 11/24/20 08:51
--- NOTE | 2020-11-24 21:30 | Obstetrical Progress Note ---
Date of Service November 24, 2020 Assessment & Plan Admission and Anticipated Discharge Date Admission Date: November 24, 2020 Subjective Patient is comfortable now, received epidural for pain VE;6/ 90%/ -1, AROM'ed , clear fluid FHR categ I Continue to monitor Anticipate Results & Data ([facility]) Vital Signs (Past 12 Hours) Vital Signs Temp Pulse Resp BP Pulse Ox 11/24/20 21:23 70 98 11/24/20 21:22 109 H 127/85 11/24/20 21:18 87 98 11/24/20 21:13 72 97 11/24/20 21:08 70 99 11/24/20 21:07 73 121/62 11/24/20 21:03 63 99 11/24/20 20:58 67 97 11/24/20 20:53 62 96 11/24/20 20:52 59 L 116/57 L 11/24/20 20:48 59 L 97 11/24/20 20:43 60 97 11/24/20 20:38 76 97 11/24/20 20:37 74 116/59 L 11/24/20 20:33 65 98 11/24/20 20:28 69 98 11/24/20 20:23 65 96 11/24/20 20:22 66 126/60 11/24/20 20:18 73 96 11/24/20 20:13 81 96 11/24/20 20:08 71 93 11/24/20 20:06 86 144/69 H 11/24/20 20:04 79 141/65 H 11/24/20 20:03 80 97 11/24/20 20:02 62 133/60 11/24/20 20:00 75 158/71 H 11/24/20 19:58 64 156/78 H 95 11/24/20 19:56 78 157/80 H 11/24/20 19:54 67 147/80 H 11/24/20 19:53 61 99 11/24/20 19:52 63 159/75 H 11/24/20 19:48 78 96 11/24/20 19:43 69 97 11/24/20 19:38 67 100 11/24/20 19:33 69 99 11/24/20 19:28 65 99 11/24/20 19:23 61 97 11/24/20 19:18 59 L 161/83 H 99 11/24/20 19:10 36.7 C 20 11/24/20 19:05 79 130/84 11/24/20 18:53 84 99 11/24/20 18:48 78 99 11/24/20 18:43 81 97 11/24/20 18:41 61 92 11/24/20 18:38 72 95 11/24/20 15:53 66 18 126/63 11/24/20 15:12 72 140/82 11/24/20 15:11 70 138/78 11/24/20 15:09 36.6 C 62 18 141/78 H 11/24/20 11:57 58 L 133/76 11/24/20 11:56 37.1 C 20
[2020-11-24] MEDS ORDERED: MINERAL OIL 30 ML UDC ONE (22:10)
[2020-11-24] MEDS ORDERED: MEASLES, MUMPS & RUBELLA VIRUS VIAL SQ ONE (22:37)
[2020-11-24] MEDS ORDERED: DIPHTHERIA/TETANUS/PERTUSSIS 0.5 ML SYR/VIAL IM ONE (22:37)
[2020-11-24] MEDS ORDERED: bisacodyL 10 MG SUPP PR PRN (22:37)
[2020-11-24] MEDS ORDERED: SUPERCREAM 0.870% 15 GM JAR EXT PRN (22:37)
[2020-11-24] MEDS ORDERED: HYDROCORTISONE ACETATE 25 MG SUPP PR PRN (22:37)
--- NOTE | 2020-11-25 00:12 | Delivery Summary ---
DATE OF OPERATION: 11/24/2020 TIME OF DELIVERY: 2215 hours. DETAILS OF DELIVERY: The patient was found to be fully dilated and desired to push. She pushed through 2 contractions and delivered the head without difficulty. Shoulders came right after the head and there was a nuchal cord around the neck x1 which was reduced. Baby was handed to the mother where mouth and nose were suctioned. Cord was clamped x2 and cut at 1-minute delay. Baby was vigorously moving and crying. Then cord blood was obtained. Vagina and perineum were checked for lacerations. There was a small but second-degree perineal laceration at the posterior fourchette. It was repaired with 0 Vicryl in a running locked fashion. Excellent hemostasis was achieved. Placenta was found to be in the vagina, delivered spontaneous as intact and complete. Uterus was explored, found to be empty. Lower segment was cleared of all clots and debris. Fundus was firm. EBL was 150 mL. Mom and baby tolerated the procedure well. Sponge, needle, and instrument counts were correct x2. Baby was a viable male infant, Apgars 8/10, and weight is 3340 gr.No complications happened. I was present during whole procedure. I attest to the content of the Intraoperative Record and any orders documented therein. Any exceptions are noted below. MTDD
[2020-11-25] MEDS: BENZOCAINE 20% AER SPR 82.5 GM CAN EXT PRN (01:30)
--- NOTE | 2020-11-25 02:14 | Anesthesia Procedure Note ---
Date of Service November 25, 2020 Anesthesia Post Epidural Note Vital Signs Vital Signs: Temp Pulse Resp BP Pulse Ox 36.7 C 69 18 124/72 97 11/25/20 01:15 11/25/20 01:15 11/25/20 01:15 11/25/20 01:15 11/25/20 01:15 Pain Intensity Bilateral Abdomen: Pain Intensity: 0 Notes Mental Status: alert / awake / arousable Nausea / Vomiting: adequately controlled Pain: adequately controlled Airway Patency, RR, SpO2: stable & adequate BP & HR: stable & adequate Hydration State: stable & adequate Neuraxial Anesthesia: was administered and sensory block is resolving Anesthetic Complications: no major complications apparent and Pt Satisfied with anesthetic care Epidural: Removed without complications and With tip intact
[2020-11-25] MEDS: IBUPROFEN 600 MG TAB PO PRN ×2 (06:45→20:37)
[2020-11-25 07:37] LABS: Hematocrit (blood only) 37.3 % (37-47); Hemoglobin 12.9 g/dL (12.0-16.0); Mean Corpuscular Hemoglobin 30.1 pg (25-34); Mean Corpuscular Hgb Conc 34.6 g/dL (32-36); Mean Corpuscular Volume 86.9 fL (80-100); Mean Platelet Volume 11.4 fL (7.4-10.4); Platelet Count 209 K/uL (130-400); RDW Coefficient of Variation 13.2 % (11.5-14.5); RDW Standard Deviation 41.9 fL (36.4-46.3); Red Blood Count 4.29 M/uL (4.2-5.4); White Blood Count 15.71 K/uL (4.8-10.8)
[2020-11-25] MEDS: DOCUSATE SODIUM 100 MG CAP PO SCH ×2 (08:24→20:37)
[2020-11-25] MEDS: PRENATAL VITAMIN 1 TAB PO SCH (08:24)
[2020-11-25] MEDS: FERROUS SULFATE 325 MG TAB PO SCH (08:43)
--- NOTE | 2020-11-25 09:30 | Obstetrical Progress Note ---
Date of Service November 25, 2020 Subjective Ambulation: ambulating normally Voiding: no voiding problems Diet Tolerance:: regular diet Lochia:: Small Physical Exam Constitutional WD/WN, vitals as above well developed and comfortable Genitourinary Uterus firm below U non-tender and soft no edema neg Edinson's tent d/c in AM Results & Data ([facility]) Vital Signs (Past 12 Hours) Vital Signs Temp Pulse Pulse Resp BP BP Pulse Ox 11/25/20 03:35 36.7 C 67 18 131/78 95 11/25/20 01:15 36.7 C 69 18 124/72 97 11/25/20 00:52 83 129/76 11/25/20 00:37 87 113/55 L 11/25/20 00:30 18 11/25/20 00:22 80 114/57 L 11/25/20 00:07 82 129/71 11/25/20 00:00 18 11/24/20 23:52 80 121/66 11/24/20 23:37 75 125/69 11/24/20 23:30 18 11/24/20 23:22 79 133/78 11/24/20 23:15 18 11/24/20 23:07 80 124/56 L 11/24/20 23:00 18 11/24/20 22:52 87 134/72 11/24/20 22:45 18 11/24/20 22:38 93 H 97 11/24/20 22:37 117/57 L 11/24/20 22:33 68 98 11/24/20 22:30 18 11/24/20 22:28 73 97 11/24/20 22:23 66 97 11/24/20 22:22 72 109/56 L 11/24/20 22:18 72 98 11/24/20 22:13 115 H 100 11/24/20 22:08 87 119/85 98 11/24/20 22:03 70 98 11/24/20 22:00 18 11/24/20 21:58 61 99 11/24/20 21:53 85 98 11/24/20 21:52 75 130/63 11/24/20 21:48 66 97 11/24/20 21:43 62 97 11/24/20 21:38 60 124/64 98 11/24/20 21:33 61 97 11/24/20 21:30 18 Laboratory Results 11/24/20 11/24/20 11/24/20 08:48 08:48 08:51 WBC RBC Hgb Hct MCV MCH MCHC RDW Std Deviation RDW Coeff of Juan Plt Count MPV Sodium Potassium Chloride Carbon Dioxide Anion Gap BUN Creatinine Est Cr Clr Drug Dosing Est GFR ( Amer) Est GFR (Non-Af Amer) BUN/Creatinine Ratio Glucose POC Glucose Calcium Total Bilirubin AST ALT Alkaline Phosphatase Total Protein Albumin Globulin Albumin/Globulin Ratio COVID-19 [facility] SARS-CoV-2, RNA, NAAT NEGATIVE Blood Type O Positive Antibody Screen NEGATIVE 11/24/20 11/24/20 11/24/20 08:51 08:51 19:22 WBC 10.93 H RBC 4.53 Hgb 13.7 Hct 39.8 MCV 87.9 MCH 30.2 MCHC 34.4 RDW Std Deviation 42.6 RDW Coeff of Juan 13.2 Plt Count 232 MPV 11.3 H Sodium 140 Potassium 4.0 Chloride 113 H Carbon Dioxide 21 Anion Gap 6.0 BUN 6 L Creatinine 0.44 L Est Cr Clr Drug Dosing 318.9 Est GFR ( Amer) > 150.0 Est GFR (Non-Af Amer) 140.3 BUN/Creatinine Ratio 12.6 Glucose 78 POC Glucose 85 Calcium 9.0 Total Bilirubin 0.4 AST 7 L ALT 11 L Alkaline Phosphatase 93 Total Protein 6.6 Albumin 2.6 L Globulin 4.0 Albumin/Globulin Ratio 0.7 L COVID-19 Eval Order SARS-CoV-2, RNA, NAAT Blood Type Antibody Screen 11/25/20 07:02 WBC 15.71 H RBC 4.29 Hgb 12.9 Hct 37.3 MCV 86.9 MCH 30.1 MCHC 34.6 RDW Std Deviation 41.9 RDW Coeff of Juan 13.2 Plt Count 209 MPV 11.4 H Sodium Potassium Chloride Carbon Dioxide Anion Gap BUN Creatinine Est Cr Clr Drug Dosing Est GFR ( Amer) Est GFR (Non-Af Amer) BUN/Creatinine Ratio Glucose POC Glucose Calcium Total Bilirubin AST ALT Alkaline Phosphatase Total Protein Albumin Globulin Albumin/Globulin Ratio COVID-19 Eval Order SARS-CoV-2, RNA, NAAT Blood Type Antibody Screen
[2020-11-25] MEDS ORDERED: bisacodyL 5 MG TABEC PO SCH (20:00)
[2020-11-26 06:34] LABS: Hematocrit (blood only) 39.4 % (37-47); Hemoglobin 13.3 g/dL (12.0-16.0)
[2020-11-26] MEDS: FERROUS SULFATE 325 MG TAB PO SCH (09:01)
[2020-11-26] MEDS: IBUPROFEN 600 MG TAB PO PRN ×2 (09:01→12:54)
[2020-11-26] MEDS: DOCUSATE SODIUM 100 MG CAP PO SCH (09:01)
[2020-11-26] MEDS: PRENATAL VITAMIN 1 TAB PO SCH (09:01)
--- NOTE | 2020-11-26 09:32 | Obstetrical Progress Note ---
Date of Service November 26, 2020 Subjective Ambulation: ambulating normally Passing Gas:: Yes Diet Tolerance:: regular diet Physical Exam Constitutional WD/WN, vitals as above well developed and comfortable abdomen soft and non-tender fundus firm no edema neg Edinson's for d/c today Results & Data ([facility]) Vital Signs (Past 12 Hours) Vital Signs Temp Pulse Resp BP Pulse Ox 11/26/20 07:55 37 C 73 20 125/78 11/25/20 23:40 36.5 C 62 16 130/79 95 Laboratory Results Laboratory Results - last 48 hr 11/24/20 11/24/20 11/24/20 08:51 08:51 19:22 WBC RBC Hgb Hct MCV MCH MCHC RDW Std Deviation RDW Coeff of Juan Plt Count MPV Sodium 140 Potassium 4.0 Chloride 113 H Carbon Dioxide 21 Anion Gap 6.0 BUN 6 L Creatinine 0.44 L Est Cr Clr Drug Dosing 318.9 Est GFR ( Amer) > 150.0 Est GFR (Non-Af Amer) 140.3 BUN/Creatinine Ratio 12.6 Glucose 78 POC Glucose 85 Calcium 9.0 Total Bilirubin 0.4 AST 7 L ALT 11 L Alkaline Phosphatase 93 Total Protein 6.6 Albumin 2.6 L Globulin 4.0 Albumin/Globulin Ratio 0.7 L Blood Type O Positive Antibody Screen NEGATIVE 11/25/20 11/26/20 07:02 06:01 WBC 15.71 H RBC 4.29 Hgb 12.9 13.3 Hct 37.3 39.4 MCV 86.9 MCH 30.1 MCHC 34.6 RDW Std Deviation 41.9 RDW Coeff of Juan 13.2 Plt Count 209 MPV 11.4 H Sodium Potassium Chloride Carbon Dioxide Anion Gap BUN Creatinine Est Cr Clr Drug Dosing Est GFR ( Amer) Est GFR (Non-Af Amer) BUN/Creatinine Ratio Glucose POC Glucose Calcium Total Bilirubin AST ALT Alkaline Phosphatase Total Protein Albumin Globulin Albumin/Globulin Ratio Blood Type Antibody Screen
[2020-11-26] MEDS: BENZOCAINE 20% AER SPR 82.5 GM CAN EXT PRN (12:54)
== END 2020-11-26 14:00 | disposition home or self-care (01) ==
LOC: 4S1 07:34 → 4S2 11-25 01:31